=== PATIENT | male | born 1955 | race Hispanic/Latino ===

== ENCOUNTER → 2021-12-22 | Outpatient (CLI) | payer MEDICARE, OTHER | LOC: RAD 15:30 | PROVIDERS: ATTEND Internal Medicine | DX: M25.561 Pain in right knee (principal) ==

== ENCOUNTER → 2022-01-12 | Outpatient (CLI) | payer MEDICARE | LOC: RAD 11:34 | PROVIDERS: ATTEND Internal Medicine | DX: R60.9 Edema, unspecified (principal); M79.605 Pain in left leg; M79.604 Pain in right leg | CPT/HCPCS: 93970 ==

== ENCOUNTER → 2022-05-31 | Outpatient (CLI) | payer MEDICARE | LOC: RAD 10:17 | PROVIDERS: ATTEND Internal Medicine | DX: R05.9 Cough, unspecified (principal) | CPT/HCPCS: 71046 ==

== ENCOUNTER → 2022-06-25 | Day surgery (SDC) | payer MEDICARE ==
[~2022-06-25] MED LIST: ALBUTEROL0.63 MG/3 NEB; ASPIRIN81 MG PO; ATORVASTATIN CA10 MG PO; CYMBALTA20 MG PO; DESFLURANE 240 ML BTL INH ONE; DEXAMETHASONE SOD PHOS INJ 4 MG/ML SDV ONE; FENTANYL CITRATE/PF 100MCG/2 ML INJ ONE; FINASTERIDE5 MG PO; FLOMAX0.4 MG PO; HYDROCHLOROTHIA50 MG PO; IOPAMIDOL 610MG/1ML 300 MG/ML VIAL IV ONE; LIDOCAINE HCL 2% LOCAL INJ 5 ML SDV VIAL INJ ONE; LOSARTAN POTASS25 MG PO; MIDAZOLAM HCL 2 MG/2 ML VIAL ONE; MONTELUKAST SOD10 MG PO; ONDANSETRON HCL INJ 2MG/ML 2ML 2 MG/ML VIAL ONE; PROPOFOL IV EMULSION 10 MG/ML 20 ML VIAL ONE; ROCURONIUM BROMIDE 10 MG/ML 5ML VIAL IV ONE; SUCCINYLCHOLINE CHLORIDE 20 MG/ML 10ML VIAL ONE; WIXELA 100-501 EACH INH
[2022-06-25] MEDS: LEVOFLOXACIN 500MG/D5W 100ML 100 ML IV ONE (07:28)
[2022-06-25 07:41] LABS: BASOPHILS % 0.6 % (0.0-1.0); EOSINOPHILS # (AUTO) 0.1 (0.0-0.4); EOSINOPHILS % 2.2 % (0.0-6.0); HEMATOCRIT 49.6 % (38.2-49.6); HEMOGLOBIN 16.4 g/dL (14.0-18.0); LYMPHOCYTES # (AUTO) 2.5 (1.0-3.2); LYMPHOCYTES % 39.2 % (18.0-39.1); MEAN CORPUSCULAR HEMOGLOBIN 29.7 pg (28-32); MEAN CORPUSCULAR HGB CONC 33.1 g/dL (31-35); MEAN CORPUSCULAR VOLUME 89.7 fL (81-99); MONOCYTES # (AUTO) 0.6 (0.2-0.8); MONOCYTES % 9.5 % (4.4-11.3); NEUTROPHILS # (AUTO) 3.1 (2.1-6.9); NEUTROPHILS % 48.3 % (38.7-80.0); PLATELET COUNT 215 x10e3/uL (140-360); RED BLOOD COUNT 5.53 x10e6/uL (4.3-5.7); RED CELL DISTRIBUTION WIDTH 12.3 % (11.7-14.4)
[2022-06-25 10:03] VITALS: BP 121/84
== END | disposition home or self-care (01) ==
LOC: OR 06:56
PROVIDERS: ATTEND Urology
DX: R31.9 Hematuria, unspecified (principal); N40.1 Benign prostatic hyperplasia with lower urinary tract symptoms; R80.9 Proteinuria, unspecified; R35.1 Nocturia; R39.14 Feeling of incomplete bladder emptying; N28.1 Cyst of kidney, acquired; R81 Glycosuria; N52.9 Male erectile dysfunction, unspecified; E66.01 Morbid (severe) obesity due to excess calories; I10 Essential (primary) hypertension; F32.A Depression, unspecified; E06.3 Autoimmune thyroiditis; Z88.0 Allergy status to penicillin; Z68.41 Body mass index [BMI] 40.0-44.9, adult; Z79.82 Long term (current) use of aspirin; Z79.899 Other long term (current) drug therapy
CPT/HCPCS: 36415; 52005; 74420; 85025; 93005; C1758; C1769; J0330; J1100; J1956; J2001; J2250; J2405; J2704; J3010; Q9967

== ENCOUNTER → 2024-02-21 | Day surgery (SDC) | payer MEDICARE ==
[~2024-02-21] MED LIST changes: -DESFLURANE 240 ML BTL INH ONE; -DEXAMETHASONE SOD PHOS INJ 4 MG/ML SDV ONE; -FENTANYL CITRATE/PF 100MCG/2 ML INJ ONE; +GLUCAGON FOR INJ 1 MG VIAL ONE; -IOPAMIDOL 610MG/1ML 300 MG/ML VIAL IV ONE; -MIDAZOLAM HCL 2 MG/2 ML VIAL ONE; -ONDANSETRON HCL INJ 2MG/ML 2ML 2 MG/ML VIAL ONE; +PANTOPRAZOLE SO40 MG PO; -PROPOFOL IV EMULSION 10 MG/ML 20 ML VIAL ONE; +PROPOFOL IV EMULSION 10 MG/ML 50 ML VIAL IV ONE; -ROCURONIUM BROMIDE 10 MG/ML 5ML VIAL IV ONE; -SUCCINYLCHOLINE CHLORIDE 20 MG/ML 10ML VIAL ONE
[2024-02-21] MEDS: LACTATED RINGER'S 1,000 ML ONE (12:51)
[2024-02-21 15:12] VITALS: TEMP 97.2
[2024-02-21 15:40] VITALS: BP 129/84; PULSE 78; RESP 16; O2SAT 97
== END | disposition home or self-care (01) ==
LOC: OR 11:54
PROVIDERS: ATTEND Internal Medicine Gastroenterology
DX: Z12.11 Encounter for screening for malignant neoplasm of colon (principal); D12.0 Benign neoplasm of cecum; K63.5 Polyp of colon; K64.8 Other hemorrhoids; I10 Essential (primary) hypertension; E78.5 Hyperlipidemia, unspecified; G47.33 Obstructive sleep apnea (adult) (pediatric); E66.01 Morbid (severe) obesity due to excess calories; N40.0 Benign prostatic hyperplasia without lower urinary tract symptoms; F32.A Depression, unspecified; G89.29 Other chronic pain; Z88.0 Allergy status to penicillin; Z79.82 Long term (current) use of aspirin; Z79.899 Other long term (current) drug therapy; Z87.891 Personal history of nicotine dependence
CPT/HCPCS: 45385; J7121; 45384; J1610; J2001

== ENCOUNTER 2024-06-23 07:58 | Emergency (ER) | payer MEDICARE ==
[~2024-06-23] VITALS: Ht 175.3 cm; Wt 122.0 kg
[~2024-06-23 07:58] MED LIST changes: -GLUCAGON FOR INJ 1 MG VIAL ONE; -LIDOCAINE HCL 2% LOCAL INJ 5 ML SDV VIAL INJ ONE; -PROPOFOL IV EMULSION 10 MG/ML 50 ML VIAL IV ONE
[2024-06-23 08:10] VITALS: PULSE 70; RESP 15; TEMP 97.7; O2SAT 96
== END 2024-06-23 08:46 | disposition home or self-care (01) ==
LOC: ER 08:02
DX: L76.22 Postprocedural hemorrhage of skin and subcutaneous tissue following other procedure (principal); Z85.828 Personal history of other malignant neoplasm of skin
CPT/HCPCS: 99283